=== PATIENT | male | born 2000 | race Hispanic/Latino ===

== ENCOUNTER 2023-12-10 07:49 | Emergency (ER) | payer OTHER, SELFPAY ==
[~2023-12-10] VITALS: Ht 175.3 cm; Wt 87.1 kg
[2023-12-10] MEDS ORDERED: DOXY100T PO (09:04)
[2023-12-10] MEDS ORDERED: LIDOCAINE 1% SDV 5ML VIAL DILUENT ONE (09:05)
[2023-12-10] MEDS ORDERED: DOXYCYCLINE HYCLATE 100MG TABLET PO ONE (09:05)
[2023-12-10] MEDS ORDERED: cefTRIAXone 500MG VIAL IM ONE (09:05)
[2023-12-10 10:02] LABS: HEPATITIS B SURFACE ANTIBODY POSITIVE (POSITIVE)
[2023-12-10 10:26] LABS: HIV 1&2 SCREEN NEGATIVE (NEGATIVE)
[2023-12-10 10:28] VITALS: BP 118/71; TEMP 98.2; O2SAT 96
[2023-12-10 10:35] LABS: HEPATITIS C VIRUS ABY INDEX < 0.02 INDEX (<0.8)
== END 2023-12-10 10:29 | disposition home or self-care (01) ==
LOC: M ED 07:49
DX: Z20.2 Contact with and (suspected) exposure to infections with a predominantly sexual mode of transmission (principal); A56.2 Chlamydial infection of genitourinary tract, unspecified; A54.9 Gonococcal infection, unspecified; Z91.030 Bee allergy status
CPT/HCPCS: 86706; 86780; 86803; 87340; 87389; 87490; 87590; 87661; 96372; 99283; J0696